=== PATIENT | male | born 1985 | race Caucasian/White ===

== ENCOUNTER 2020-09-02 13:23 | Emergency (ER) | payer BC ==
[2020-09-02] MEDS ORDERED: DESYREL50 MG PO (14:01)
[2020-09-02] MEDS ORDERED: ESCITALOPRAM10 MG PO (14:01)
[2020-09-02 14:31] LABS: HEMATOCRIT 40.3 % (42.0-52.0); HEMOGLOBIN 13.5 g/dL (13.5-18.0); MEAN CELL VOLUME 90 fl (78-100); MEAN CORPUSCULAR HEMOGLOBIN 30 pg (27-31); MEAN CORPUSCULAR HGB CONC 34 g/dL (33-37); MEAN PLATELET VOLUME 9.8 fl (7.4-10.4); PLATELET COUNT 281 K/mm3 (130-400); RED BLOOD COUNT 4.46 M/mm3 (4.20-5.60); RED CELL DISTRIBUTION WIDTH 12.4 % (11.5-14.5); WHITE BLOOD COUNT 18.1 K/mm3 (4.8-10.8)
[2020-09-02 14:44] LABS: ALBUMIN 4.2 g/dL (3.5-5.0)
[2020-09-02 14:45] LABS: POTASSIUM 3.2 mmol/L (3.5-5.1)
[2020-09-02 14:46] LABS: CALCIUM 9.3 mg/dL (8.3-10.5)
[2020-09-02 14:47] LABS: TOTAL PROTEIN 7.2 g/dL (6.4-8.3)
[2020-09-02 14:49] LABS: TOTAL BILIRUBIN 0.5 mg/dL (0.2-1.2)
[2020-09-02 15:29] LABS: LYMPHOCYTE 16 % (20-51); MONOCYTE 14 % (3-10); NEUTROPHILS 68 % (42-75)
[2020-09-02 16:31] LABS: URINE APPEARANCE CLEAR; URINE BILIRUBIN NEGATIVE (NEGATIVE); URINE BLOOD TRACE (NEGATIVE); URINE COLOR YELLOW; URINE GLUCOSE NEGATIVE (NEGATIVE); URINE KETONE NEGATIVE (NEGATIVE); URINE LEUKOCYTE ESTERASE NEGATIVE (NEGATIVE); URINE NITRATE NEGATIVE (NEGATIVE); URINE PROTEIN(semi-quant) NEGATIVE (NEGATIVE); URINE UROBILINOGEN NORMAL (NORMAL); URINE WBC 0-1 /hpf (0-3)
[2020-09-02] MEDS ORDERED: K-TAB20 MEQ PO (16:46)
[2020-09-02] MEDS ORDERED: VANCOCIN125 MG PO (16:46)
[2020-09-02 16:55] VITALS: BP 128/88
== END 2020-09-02 17:02 | disposition home or self-care (01) ==
LOC: ED 13:23
PROVIDERS: Physician Assistant
DX: K52.9 Noninfective gastroenteritis and colitis, unspecified (principal); E87.6 Hypokalemia; F41.9 Anxiety disorder, unspecified; F17.200 Nicotine dependence, unspecified, uncomplicated; Z20.822 Contact with and (suspected) exposure to COVID-19
CPT/HCPCS: J1885; J7030